=== PATIENT | female | born 1960 | race Caucasian/White ===

== ENCOUNTER 2016-04-08 18:39 | Emergency (ER) | payer OTHER ==
[2016-04-08 18:50] VITALS: RESP 16
--- NOTE | 2016-04-08 19:33 | EDPHY ---
H & P Time Seen by Provider: 04/08/16 19:30 HPI/ROS: CHIEF COMPLAINT: Migraine. HISTORY OF PRESENT ILLNESS: The patient is a 55-year-old female with a history of migraine headaches presents with a typical migraine headache. Onset of headache at 0300 this morning. The headache is located on the left side of her head, is throbbing and associated with photophobia and vomiting. The headache is moderate to severe and typical of her usual migraine headaches. Imitrex x 3 without any relief. She denies numbness, weakness, paresthesias, recent sickness , fever, myalgia, or other complaints. REVIEW OF SYSTEMS: A complete 10-point review of systems was performed and is negative except for those items mentioned in the HPI. Past Medical/Surgical History: Asthma, migraines, cholelithiasis. Social History: Nonsmoker. Smoking Status: Never smoked Physical Exam: General Appearance: Alert, does not appear in pain Eyes: Pupils equal and round, no conjunctival pallor ENT, Mouth: Mucous membranes moist Neck: Normal inspection Respiratory: Lungs are clear to auscultation Cardiovascular: Regular rate and rhythm Gastrointestinal: Abdomen is soft and non-tender Neurological: Alert, oriented x3, cranial nerves II through XII intact, motor 5 /5, sensory intact to light touch, normal gait Skin: Warm and dry, no rash Extremities: Nontender, no pedal edema Psychiatric: Mood and affect normal Constitutional: Initial Vital Signs Temperature (C) 36.5 C 04/08/16 18:48 Heart Rate 74 04/08/16 18:48 Respiratory Rate 16 04/08/16 18:48 Blood Pressure 131/89 H 04/08/16 18:48 O2 Sat (%) 93 04/08/16 18:48 O2 Delivery Mode Room Air Allergies/Adverse Reactions: butorphanol tartrate [From Stadol] Allergy (Verified 04/08/16 18:47) Penicillins Allergy (Verified 04/08/16 18:47) promethazine HCl [From Phenergan] Allergy (Verified 04/08/16 18:47) Home Medications: Medication Instructions Recorded PROzac 12/25/08 TRAZODONE HCL 12/25/08 IMITREX 02/18/09 Flonase Allergy Relief 05/02/15 Ondansetron Odt [Zofran Odt 4 mg 4 mg PO Q4 PRN #6 tab 05/02/15 (*)] Pantoprazole Sodium [Protonix 40mg 40 mg PO DAILY #20 tab 05/02/15 (*)] Cephalexin [Keflex] 500 mg PO Q6H #28 cap 11/07/15 Hydrocodone/APAP 5/325 [[place] 1 - 2 tab PO Q4H PRN #10 tab 11/07/15 5/325] Nitrofurantoin Macrobid [Macrobid] 100 mg PO BID #14 cap 11/07/15 Ondansetron HCl [Zofran] 4 mg PO Q4-6PRN PRN #10 tablet 11/07/15 Medical Decision Making ED Course/Re-evaluation: This patient presents with a typical migraine. She is requesting IM Dilaudid and Vistaril. I reviewed her past medical record and told her that narcotics are not generally effective for breaking the migraine cycle. However she insists that this is all that will make her feel better. 2mg IM Dilaudid and 50mg IM Vistaril administered for migraine. 2030: Reassessed patient. She is feeling much better after the medications. She would like to go home. She was given return precautions prior to discharge. Differential Diagnosis: Headache including but not limited to subarachnoid hemorrhage, migraine headache , tension headache and infectious causes such as meningitis, pharyngitis and sinusitis. - Data Points Medications Given: Discontinued Medications Hydromorphone HCl (Dilaudid) 2 mg IM EDNOW ONE Stop: 04/08/16 19:40 Last Admin: 04/08/16 19:47 Dose: 2 mg Hydroxyzine HCl (Hydroxyzine Hcl) 50 mg IM EDNOW ONE Stop: 04/08/16 19:41 Last Admin: 04/08/16 19:48 Dose: 50 mg Departure - Departure Disposition: Home, Routine, Self-Care Clinical Impression: Migraine Qualifiers: Migraine type: unspecified Status migrainosus presence: without status migrainosus Intractability: not intractable Qualified Code(s): G43.909 - Migraine, unspecified, not intractable, without status migrainosus Condition: Good Instructions: Migraine Headache (ED) Additional Instructions: Follow up with your neurologist if you have more frequent migraines or migraines of a different nature than usual. If you need a neurologist you have been given the telephone number of the on-call neurologist Dr. Dashawn Reid. Return to the emergency department if you experience any serious worsening of condition. Referrals: Lizbet Turner MD [Primary Care Provider] - As per Instructions Dashawn Reid MD [Medical Doctor] - As per Instructions Report Scribed for: Kriss Cavanaugh Report Scribed by: Alvaro Rabago Date of Report: 04/08/16 Time of Report: 19:31 Physician Review and Approval Statement: 04/08/16 19:31 Portions of this note were transcribed by a medical coding technician. I personally performed a history, physical exam, medical decision making, and confirmed accuracy of information the transcribed note.
[2016-04-08] MEDS ORDERED: HYDROmorphONE/DILAUDID 1 MG/ML SYR IM ONE (19:39)
[2016-04-08] MEDS ORDERED: hydrOXYzine HCL 50 MG/ML VIAL IM ONE (19:40)
[2016-04-08 20:29] VITALS: BP 140/78; PULSE 88; TEMP 98.4; O2SAT 94
== END 2016-04-08 20:29 | disposition home or self-care (01) ==
DX: G43.909 Migraine, unspecified, not intractable, without status migrainosus (principal); J45.909 Unspecified asthma, uncomplicated
CPT/HCPCS: J1170; J3410

== ENCOUNTER 2016-05-08 15:22 | Emergency (ER) | payer OTHER ==
[2016-05-08 15:44] VITALS: TEMP 98.1
--- NOTE | 2016-05-08 15:48 | EDPHY ---
H & P Stated Complaint: Typical migraine for pt;initially relieved w/imitrex,now has nausea Time Seen by Provider: 05/08/16 15:48 - Personal History Current Tetanus Diphtheria and Acellular Pertussis (TDAP): Yes Tetanus Vaccine Date: 2009 - Medical/Surgical History Hx Asthma: Yes Hx Chronic Respiratory Disease: No Hx Diabetes: No Hx Cardiac Disease: No Hx Renal Disease: No Hx Cirrhosis: No Hx Alcoholism: No Hx HIV/AIDS: No Hx Splenectomy or Spleen Trauma: No Other PMH: PMH: asthma, migraine, gallstones. PSH: FACE LIFT - Social History Smoking Status: Never smoked Constitutional: Initial Vital Signs Temperature (C) 36.7 C 05/08/16 15:30 Heart Rate 77 05/08/16 15:30 Respiratory Rate 18 05/08/16 15:30 Blood Pressure 112/83 H 05/08/16 15:30 O2 Sat (%) 94 05/08/16 15:30 O2 Delivery Mode Room Air Allergies/Adverse Reactions: Penicillins Allergy (Severe, Verified 05/08/16 15:40) throat swells promethazine HCl [From Phenergan] Allergy (Intermediate, Verified 05/08/16 15:40 ) extrapyramidal sxs butorphanol tartrate [From Stadol] Allergy (Verified 04/08/16 18:47) Home Medications: Medication Instructions Recorded PROzac 12/25/08 TRAZODONE HCL 12/25/08 IMITREX 02/18/09 Flonase Allergy Relief 05/02/15 Pantoprazole Sodium [Protonix 40mg 40 mg PO DAILY #20 tab 05/02/15 (*)] Hydrocodone/APAP 5/325 [[place] 1 - 2 tab PO Q4H PRN #10 tab 11/07/15 5/325] Medical Decision Making ED Course/Re-evaluation: CHIEF COMPLAINT: Migraine HISTORY OF PRESENT ILLNESS: The patient is a 55 y/o female, with a history of migraines, arriving with her complaining of a migraine onset yesterday. She has associated photophobia and mild nausea, but denies neurologic deficits or vomiting. She states her symptoms today are consistent with previous migraines. Her migraines are generally triggered by weather changes and often alleviated with Imitrex at home. Imitrex has not helped her symptoms today. She denies other pertinent medical history. REVIEW OF SYSTEMS: A 10 point review of systems was performed and is negative with the exception of the elements mentioned in the history of present illness. PHYSICAL EXAM: HR, BP, O2 Sat, RR. Temp noted General Appearance: Alert, well hydrated, appropriate, and non-toxic appearing. Head: Atraumatic without scalp tenderness or obvious injury Eyes: Pupils equal, round, reactive to light and accommodation, EOMI, no trauma , no injection. Ears: Clear bilaterally, no perforation, normal landmarks Nose: Atraumatic, no rhinorrhea, clear. Throat: There is no erythema or exudates, no lesions, normal tonsils, mucus membranes moist. Neck: Supple, nontender, no lymphadenopathy. Respiratory: No retractions, no distress, no wheezes, and no accessory muscle use. Lungs are clear to auscultation bilaterally. Cardiovascular: Regular rate and rhythm, no murmurs, rubs, or gallops. Good capillary refill all extremities. Gastrointestinal: Abdomen is soft, nontender, non-distended, no masses, no rebound, no guarding, no peritoneal signs. Musculoskeletal: Normal active ROM of all extremities, atraumatic. Neurological: Alert, appropriate, and interactive. The patient has normal DTRs and non-focal cranial nerves, motor, sensory, and cerebellar exam. Skin: No rashes, good turgor, no nodules on palpation. Past medical history: Migraines - Botox, Imitrex; asthma Past surgical history: face lift Family history: noncontributory Social history: at bedside DIFFERENTIAL DIAGNOSIS: The differential diagnosis for the patient's headache included but was not limited to subarachnoid hemorrhage, migraine headache, tension headache and infectious causes such as meningitis, pharyngitis and sinusitis. MEDICAL DECISION MAKING: This is a 55 y/o female presenting with [id number] migraine symptoms onset yesterday. She is neurovascularly intact. She has presented previously for the same symptoms and is specifically requesting IM Dilaudid and IM Viosterol. She refuses migraine cocktail or IV. 2mg IM Dilaudid and 0.5mg IM Hydroxyzine administered. Departure - Departure Disposition: Home, Routine, Self-Care Clinical Impression: Migraine Qualifiers: Migraine type: unspecified Status migrainosus presence: without status migrainosus Intractability: not intractable Qualified Code(s): G43.909 - Migraine, unspecified, not intractable, without status migrainosus Condition: Good Instructions: Migraine Headache (ED) Additional Instructions: Follow up with your primary care provider or neurologist next week as needed for continued symptoms. Return to the ED for any worsening of condition. Referrals: Lizbet Turner MD [Primary Care Provider] - As per Instructions Report Scribed for: Shan Avalos Report Scribed by: Noemy Nair Date of Report: 05/08/16 Time of Report: 15:56
[2016-05-08] MEDS ORDERED: LORazepam 2 MG/ML INJ IVP ONE (15:51)
[2016-05-08] MEDS ORDERED: KETOROLAC 30 MG/1 ML SDV IVP ONE (15:51)
[2016-05-08] MEDS ORDERED: DEXAMETHASONE 10 MG/ML VIAL IVP ONE (15:51)
[2016-05-08] MEDS ORDERED: HYDROmorphONE/DILAUDID 1 MG/ML SYR IVP ONE (15:52)
[2016-05-08] MEDS ORDERED: hydrOXYzine HCL 50 MG/ML VIAL IM ONE (16:11)
[2016-05-08] MEDS ORDERED: HYDROmorphONE/DILAUDID 1 MG/ML SYR IM ONE ×2 (16:14→17:01)
[2016-05-08 17:32] VITALS: BP 108/76; PULSE 16; RESP 70; O2SAT 92
== END 2016-05-08 17:33 | disposition home or self-care (01) ==
DX: G43.909 Migraine, unspecified, not intractable, without status migrainosus (principal); J45.909 Unspecified asthma, uncomplicated
CPT/HCPCS: J1170; J3410

== ENCOUNTER → 2016-06-04 | Outpatient (CLI) | payer OTHER | LOC: FIMAGING 15:52 | DX: Z12.31 Encounter for screening mammogram for malignant neoplasm of breast (principal) | CPT/HCPCS: G0202 ==

== ENCOUNTER 2018-06-17 23:14 | Emergency (ER) | payer OTHER ==
[2018-06-17] MEDS ORDERED: hydrOXYzine HCL 50 MG/ML VIAL IM ONE (23:34)
[2018-06-17] MEDS ORDERED: HYDROmorphONE/DILAUDID 2 MG/ML INJ IVP ONE (23:34)
[2018-06-18] MEDS ORDERED: HYDROmorphONE/DILAUDID 2 MG/ML INJ IVP ONE (00:24)
[2018-06-18] MEDS ORDERED: ONDANSETRON 4MG PREPACK#2 BTL TAKEHOME ONE (00:28)
--- NOTE | 2018-06-18 00:49 | EDPHY ---
H & P Stated Complaint: Nausea and Vomiting Time Seen by Provider: 06/17/18 23:33 HPI/ROS: Chief complaint: Headache History of present illness: This is a 57-year-old female who presents to the emergency department for evaluation and treatment of a headache. Patient reports she has a long history of migraine headaches. She reports the onset of this headache over the few days. She states this is a typical type headache. There is nothing new or different today as compared to previous headaches. It was not thunderclap in nature. It is not the worst headache of her life. She believes it is likely due to the fact that she recently had PRP injected into her scalp for thinning of her hair and a tummy tuck. She has used her Imitrex twice each day for the last 2 days for a total of 4 doses but symptoms are not improving. She has had nausea and vomiting. Usually when she gets to this point she needs Dilaudid and hydroxyzine and she is requesting this, this evening. She denies fever or cold symptoms. She denies trauma. She denies other neurologic symptoms including paresthesias, weakness or paralysis or bowel or bladder dysfunction. Review of systems: A 10 point review of systems was obtained and other than described above was negative. - Personal History Current Tetanus/Diphtheria Vaccine: Yes Current Tetanus Diphtheria and Acellular Pertussis (TDAP): Yes Tetanus Vaccine Date: 2009 - Medical/Surgical History Hx Asthma: Yes Hx Chronic Respiratory Disease: No Hx Diabetes: No Hx Cardiac Disease: No Hx Renal Disease: No Hx Cirrhosis: No Hx Alcoholism: No Hx HIV/AIDS: No Hx Splenectomy or Spleen Trauma: No Other PMH: PMH: asthma, migraine, gallstones, milly tuck, liposuction. PSH: FACE LIFT - Social History Smoking Status: Never smoked - Physical Exam Exam: General Appearance: Alert, appears uncomfortable but nontoxic. Eyes: Pupils equal and round no pallor or injection. ENT, Mouth: Mucous membranes moist. Respiratory: There are no retractions, lungs are clear to auscultation. Cardiovascular: Regular rate and rhythm. Gastrointestinal: Abdomen is soft and non tender, no masses, bowel sounds normal. Neurological: Alert and oriented x4. Cranial nerves 2-12 grossly intact. Strength and sensation intact and symmetrical. Skin: Warm and dry, no rashes. Musculoskeletal: Neck is supple non tender. Extremities are symmetrical, full range of motion. Psychiatric: Patient is oriented X 3, there is no agitation. Constitutional: Initial Vital Signs Temperature (C) 36.5 C 06/17/18 23:21 Heart Rate 92 06/17/18 23:21 Respiratory Rate 16 06/17/18 23:21 Blood Pressure 127/92 H 06/17/18 23:21 O2 Sat (%) 89 L 06/17/18 23:21 O2 Delivery Mode Room Air Allergies/Adverse Reactions: Penicillins Allergy (Severe, Verified 05/08/16 15:40) throat swells promethazine HCl [From Phenergan] Allergy (Intermediate, Verified 05/08/16 15:40 ) extrapyramidal sxs butorphanol tartrate [From Stadol] Allergy (Verified 04/08/16 18:47) metoclopramide [From Reglan] Allergy (Verified 06/17/18 23:18) Home Medications: Medication Instructions Recorded PROzac 12/25/08 TRAZODONE HCL 12/25/08 IMITREX 02/18/09 Flonase Allergy Relief 05/02/15 Hydrocodone/APAP 5/325 [[place] 1 - 2 tab PO Q4H PRN #10 tab 11/07/15 5/325] HYDROmorphone HCL [Dilaudid 4 mg 4 mg PO 06/17/18 (*)] Medical Decision Making ED Course/Re-evaluation: Patient seen under the supervision of my secondary supervising physician Dr. Dequan Garcia. Patient presents for treatment of a migraine headache. She has a history of migraine headaches. By history and physical exam I do not appreciate evidence of red flag risk factors. I believe this is a typical type headache. She is symptomatically treated and reports significant improvement in symptoms after 1st round of treatment. She is requesting to be discharged home. Home care is discussed. She is to follow up with her primary care doctor for recheck. Return precautions are given. Patient voiced understanding and agreement with plan. Differential Diagnosis: Included but not limited to migraine headache, chronic daily headache, tension headache, doubtful intracranial bleed or infectious pathology - Data Points Medications Given: Discontinued Medications Hydromorphone HCl (Dilaudid) 1 mg IVP EDNOW ONE Stop: 06/17/18 23:35 Last Admin: 06/17/18 23:42 Dose: 1 mg Hydromorphone HCl (Dilaudid) 0.5 mg IVP EDNOW ONE Stop: 06/18/18 00:25 Last Admin: 06/18/18 00:28 Dose: Not Given Hydroxyzine HCl (Hydroxyzine Hcl) 50 mg IM EDNOW ONE Stop: 06/17/18 23:35 Last Admin: 06/17/18 23:42 Dose: 50 mg Ondansetron HCl (Zofran Odt 4 Mg Prepack#2) 1 btl TAKEHOME EDNOW ONE Stop: 06/18/18 00:29 Last Admin: 06/18/18 00:32 Dose: 1 btl Departure - Departure Disposition: Home, Routine, Self-Care Clinical Impression: Headache Qualifiers: Headache type: unspecified Headache chronicity pattern: acute headache Intractability: not intractable Qualified Code(s): R51 - Headache Condition: Good Instructions: Ondansetron (By mouth), Acute Headache (ED) Additional Instructions: Follow-up with your primary care doctor next week for continued evaluation and care If symptoms worsen or new symptoms develop return to the emergency department for recheck Referrals: Lizbet Turner MD [Primary Care Provider] - As per Instructions
[2018-06-18 00:50] VITALS: BP 109/69
== END 2018-06-18 00:54 | disposition home or self-care (01) ==
DX: R51 Headache (principal); R11.2 Nausea with vomiting, unspecified
CPT/HCPCS: 96374; J1170; J3410